=== PATIENT | female | born 1930 | race Hispanic/Latino ===

== ENCOUNTER 2018-11-27 13:47 | Outpatient (CLI) | payer MEDICARE ==
--- NOTE | 2018-11-27 14:43 | XRay Report ---
XRAY CHEST TWO VIEWS: 11/27/18 13:47:00 CLINICAL: Cough.Bronchitis. COMPARISON: None FINDINGS: The heart is mildly enlarged. The left pulmonary artery is prominent due to rotation. An irregular 1 cm right hilar opacity and a smaller right suprahilar lung opacity. A right lower lobe calcified granuloma. The lungs are otherwise clear. No airspace disease or pleural effusion. The bones and soft tissues are unremarkable. IMPRESSION: Mild cardiomegaly but no CHF.No pneumonia. Recommend CT chest without contrast to evaluate right hilar and right upper lobe opacities.
== END 2018-11-27 13:48 | disposition home or self-care (01) ==
LOC: SPVIMAG 13:47
PROVIDERS: ATTEND Internal Medicine
DX: I51.7 Cardiomegaly (principal); J40 Bronchitis, not specified as acute or chronic
CPT/HCPCS: 71046